=== PATIENT | female | born 1955 | race Caucasian/White ===

== ENCOUNTER 2019-07-28 15:20 | Inpatient (IN) ==
[2019-07-28] MEDS ORDERED: AZITHROMYCIN INJ 500 MG in SODIUM CHLORIDE 0.9% 250 ML IV STA (16:08)
[2019-07-28] MEDS ORDERED: methylPREDNISolone SOD SUC 125 MG/2 ML VIAL IV STA (16:08)
[2019-07-28] MEDS ORDERED: ONDANSETRON 4 MG/2 ML VIAL IV STA (16:08)
[2019-07-28] MEDS ORDERED: cefTRIAXone 1,000 MG in SODIUM CHLORIDE 0.9% 100 ML IV STA (16:08)
[2019-07-28] MEDS ORDERED: ALBUTEROL 2.5 MG/3 ML NEB RESP TX SCH (16:30)
[2019-07-28 17:09] LABS: Basophils % 0.6 % (0.0-0.8); Eosinophils # 0.3 10*3/uL (0.0-0.87); Eosinophils % 3.9 % (0.00-10.9); Hematocrit 37.8 VOL% (35.7-47.0); Hemoglobin 12.5 GM/DL (12.0-16.0); Immature Granulocytes % 0.7 %; Immature Granulocytes Absolute 0.05 #; Lymphocytes # 1.8 10*3/uL (1.4-4.0); Mean Corpuscular HGB Conc 33.1 GM/DL (32-36); Mean Corpuscular Volume 95.5 FL (87-102); Mean Platelet Volume 9.2 FL (9.6-12.0); Monocytes % 6.9 % (1.7-12.7); Neutrophils % 61.9 % (38.7-73.9); Platelet Count 304 T/CUMM (130-400); Red Blood Count 3.96 MC/CUMM (3.8-5.5); Red Cell Distribution Width 14.1 % (9.3-17.3); White Blood Count 6.9 T/CUMM (4-12)
[2019-07-28 17:21] LABS: INR 0.9; PT Patient Result 9.9 SECS (9.6-12.2); Partial Thromboplastin Time 28.9 SECS (20.8-36.0)
[2019-07-28 17:32] LABS: Alanine Aminotransferase 17 U/L (13-56); Albumin 3.5 G/DL (3.4-5.0); Alkaline Phosphatase 61 U/L (45-117); Aspartate Amino Transferase 9 U/L (0-37); Bilirubin,Total < 0.39 MG/DL (0.2-1.0); Blood Urea Nitrogen 12 MG/DL (7-18); Calcium 9.3 MG/DL (8.5-10.1); Estimated Glom Filtration Rate 95 ML/MIN; Glucose 121 MG/DL (74-106); Total Protein 6.9 G/DL (6.4-8.3); Troponin I < 0.015 NG/ML (0.00-0.045)
[2019-07-28 18:59] LABS: Apearance,Urine CLEAR (Clear); Bilirubin,Urine Negative (Negative); Blood, Urine Negative (Negative); Glucose,Urine (UA) Negative (Negative); Ketones,Urine Negative (Negative); Mucus,Urine Occasional /LPF (Occasional); Nitrite,Urine Negative (Negative); Protein,Urine Negative; RBC,Urine 4 /HPF (0-4); Squamous Epithelial Cell,Urine Occasional /HPF (0-10); Urine Color Yellow (Yellow); Urine Specific Gravity 1.015 (1.001-1.035); Urine Urobilinogen < 2.0 EU/DL (0.2-1.0); WBC,Urine 1 /HPF (0-6)
[2019-07-28 19:01] LABS: Barbiturates Screen,Urine Positive (Negative); Benzodiazepines Screen,Urine Negative (Negative); Cannabinoid Screen,Urine Negative (Negative); Opiate Screen,Urine Positive (Negative); Phencyclidine Screen,Urine Negative (Negative)
[2019-07-28] MEDS ORDERED: BUTALBITAL/ACETAMIN/CAFFEINE 50-325-40 MG TABLET PO PRN (22:36)
[2019-07-28] MEDS ORDERED: MAGNESIUM SULF RIDER 4 GM in PREMIX 1 EACH IV PRN (23:10)
[2019-07-28] MEDS ORDERED: SODIUM CHLORIDE 0.9% 1,000 ML IV SCH (23:10)
[2019-07-28] MEDS ORDERED: DOCUSATE SODIUM 100 MG CAPSULE PO PRN (23:10)
[2019-07-28] MEDS ORDERED: DEXTROSE 50% 25 GM/50 ML VIAL IV PRN (23:10)
[2019-07-28] MEDS ORDERED: MAGNESIUM SULF RIDER 2 GM in PREMIX 1 EACH IV PRN (23:10)
[2019-07-28] MEDS ORDERED: ONDANSETRON 4 MG/2 ML VIAL IV PRN (23:10)
[2019-07-28] MEDS ORDERED: GLUCAGON 1 MG VIAL IM PRN (23:10)
[2019-07-28] MEDS ORDERED: NICOTINE 21 MG/24 HR PATCH TRANSDERM PRN (23:10)
[2019-07-28] MEDS ORDERED: ALBUTEROL 2.5 MG/3 ML NEB RESP TX PRN (23:10)
[2019-07-28] MEDS ORDERED: ACETAMINOPHEN 325 MG TABLET PO PRN (23:10)
[2019-07-29] MEDS ORDERED: LEVOFLOXACIN INJ 750 MG in PREMIX 1 EACH IV SCH
[2019-07-29] MEDS: DULoxetine 30 MG CAPSULE PO SCH ×2 (00:06→22:22)
[2019-07-29] MEDS: PRIMIDONE 50 MG TABLET PO SCH ×4 (00:06→22:24)
[2019-07-29] MEDS: MELATONIN 3 MG TABLET PO SCH ×2 (00:07→22:23)
[2019-07-29] MEDS: traZODone 50 MG TABLET PO SCH ×2 (00:08→22:22)
[2019-07-29] MEDS: THEOPHYLLINE ER 300 MG TABLET PO SCH ×3 (00:08→22:25)
[2019-07-29] MEDS: INSULIN LISPRO 100 UNIT/ML SUBCUT SCH ×5 (00:09→22:39)
[2019-07-29] MEDS: ENOXAPARIN 40 MG/0.4 ML SYRINGE SUBCUT SCH ×2 (00:09→22:22)
[2019-07-29] MEDS: GABAPENTIN 600 MG TABLET PO SCH ×4 (00:09→22:24)
[2019-07-29] MEDS: ALBUTEROL/IPRATROPIUM 3 ML NEB RESP TX SCH ×4 (00:31→19:21)
[2019-07-29] MEDS: methylPREDNISolone SOD SUC 40 MG/1 ML VIAL IV SCH ×3 (01:51→17:36)
[2019-07-29] MEDS: PIPERACILLIN/TAZOBACTAM 3,375 MG in SODIUM CHLORIDE 0.9% 100 ML IV SCH ×3 (01:52→17:36)
[2019-07-29 06:04] LABS: Basophils % 0.1 % (0.0-0.8); Hematocrit 36.1 VOL% (35.7-47.0); Immature Granulocytes % 1.6 %; Immature Granulocytes Absolute 0.12 #; Lymphocytes # 0.8 10*3/uL (1.4-4.0); Lymphocytes % 10.6 % (21.3-54.2); Mean Corpuscular HGB Conc 33.2 GM/DL (32-36); Mean Corpuscular Volume 94.5 FL (87-102); Mean Platelet Volume 9.4 FL (9.6-12.0); Monocytes % 1.8 % (1.7-12.7); Neutrophils % 85.9 % (38.7-73.9); Platelet Count 323 T/CUMM (130-400); Red Blood Count 3.82 MC/CUMM (3.8-5.5); Red Cell Distribution Width 14.2 % (9.3-17.3); White Blood Count 7.4 T/CUMM (4-12)
[2019-07-29 06:32] LABS: Calcium 8.6 MG/DL (8.5-10.1); Thyroid Stimulating Hormone 0.207 uIU/ml (0.358-3.74)
[2019-07-29] MEDS ORDERED: ASCORBIC ACID COLLAGEN PO SCH (09:00)
[2019-07-29] MEDS ORDERED: MONTELUKAST 10 MG TABLET PO SCH (09:00)
[2019-07-29] MEDS: EZETIMIBE 10 MG TABLET PO SCH (09:07)
[2019-07-29] MEDS: LOSARTAN 25 MG TABLET PO SCH (09:07)
[2019-07-29] MEDS: ASPIRIN EC 81 MG TABLET PO SCH (09:07)
[2019-07-29] MEDS: CLOPIDOGREL 75 MG TABLET PO SCH (09:07)
[2019-07-29] MEDS: TOLTERODINE LA 4 MG CAPSULE PO SCH (09:08)
[2019-07-29] MEDS: ALBUTEROL 2 MG TABLET PO SCH ×2 (12:12→22:25)
[2019-07-29] MEDS: CLINDAMYCIN INJ 300 MG in PREMIX 1 EACH IV SCH ×3 (13:18→22:26)
[2019-07-29] MEDS: MONTELUKAST 10 MG TABLET PO SCH (22:25)
[2019-07-30] MEDS: ALBUTEROL/IPRATROPIUM 3 ML NEB RESP TX SCH ×4 (00:48→20:05)
[2019-07-30] MEDS: methylPREDNISolone SOD SUC 40 MG/1 ML VIAL IV SCH ×3 (01:31→17:27)
[2019-07-30] MEDS: PIPERACILLIN/TAZOBACTAM 3,375 MG in SODIUM CHLORIDE 0.9% 100 ML IV SCH ×3 (01:31→17:26)
[2019-07-30] MEDS: CLINDAMYCIN INJ 300 MG in PREMIX 1 EACH IV SCH ×4 (04:53→22:17)
[2019-07-30 05:47] LABS: Basophils % 0.2 % (0.0-0.8); Hemoglobin 12.5 GM/DL (12.0-16.0); Immature Granulocytes % 1.7 %; Immature Granulocytes Absolute 0.18 #; Lymphocytes % 9.6 % (21.3-54.2); Mean Corpuscular HGB Conc 32.9 GM/DL (32-36); Mean Corpuscular Volume 96.2 FL (87-102); Mean Platelet Volume 9.5 FL (9.6-12.0); Monocytes % 3.1 % (1.7-12.7); Neutrophils % 85.4 % (38.7-73.9); Platelet Count 373 T/CUMM (130-400); Red Blood Count 3.95 MC/CUMM (3.8-5.5); Red Cell Distribution Width 14.3 % (9.3-17.3); White Blood Count 10.4 T/CUMM (4-12)
[2019-07-30 06:10] LABS: Calcium 8.6 MG/DL (8.5-10.1); Osmolality,Calculated 283.5 MOS/KG (273-304)
[2019-07-30] MEDS: EZETIMIBE 10 MG TABLET PO SCH (08:44)
[2019-07-30] MEDS: THEOPHYLLINE ER 300 MG TABLET PO SCH ×2 (08:44→22:19)
[2019-07-30] MEDS: MONTELUKAST 10 MG TABLET PO SCH ×2 (08:44→22:19)
[2019-07-30] MEDS: PRIMIDONE 50 MG TABLET PO SCH ×3 (08:44→22:19)
[2019-07-30] MEDS: CLOPIDOGREL 75 MG TABLET PO SCH (08:44)
[2019-07-30] MEDS: GABAPENTIN 600 MG TABLET PO SCH ×3 (08:45→22:19)
[2019-07-30] MEDS: INSULIN LISPRO 100 UNIT/ML SUBCUT SCH ×4 (08:45→22:26)
[2019-07-30] MEDS: LOSARTAN 25 MG TABLET PO SCH (08:45)
[2019-07-30] MEDS: ASPIRIN EC 81 MG TABLET PO SCH (08:45)
[2019-07-30] MEDS: TOLTERODINE LA 4 MG CAPSULE PO SCH (08:45)
[2019-07-30] MEDS: ALBUTEROL 2 MG TABLET PO SCH ×2 (08:51→22:20)
[2019-07-30] MEDS: DORNASE ALFA 2.5 MG/2.5 ML VIAL RESP TX SCH ×2 (09:55→20:13)
[2019-07-30] MEDS: ENOXAPARIN 40 MG/0.4 ML SYRINGE SUBCUT SCH (22:18)
[2019-07-30] MEDS: DULoxetine 30 MG CAPSULE PO SCH (22:19)
[2019-07-30] MEDS: MELATONIN 3 MG TABLET PO SCH (22:19)
[2019-07-30] MEDS: traZODone 50 MG TABLET PO SCH (22:32)
[2019-07-31] MEDS: ALBUTEROL/IPRATROPIUM 3 ML NEB RESP TX SCH ×4 (00:57→19:46)
[2019-07-31] MEDS: methylPREDNISolone SOD SUC 40 MG/1 ML VIAL IV SCH ×2 (03:15→09:54)
[2019-07-31] MEDS: PIPERACILLIN/TAZOBACTAM 3,375 MG in SODIUM CHLORIDE 0.9% 100 ML IV SCH ×3 (03:15→17:51)
[2019-07-31 05:29] LABS: Basophils % 0.3 % (0.0-0.8); Hematocrit 32.5 VOL% (35.7-47.0); Hemoglobin 10.6 GM/DL (12.0-16.0); Immature Granulocytes % 1.9 %; Immature Granulocytes Absolute 0.15 #; Lymphocytes # 1.2 10*3/uL (1.4-4.0); Lymphocytes % 15.3 % (21.3-54.2); Mean Corpuscular HGB Conc 32.6 GM/DL (32-36); Mean Corpuscular Volume 96.7 FL (87-102); Mean Platelet Volume 9.4 FL (9.6-12.0); Monocytes % 5.7 % (1.7-12.7); Neutrophils % 76.8 % (38.7-73.9); Platelet Count 312 T/CUMM (130-400); Red Blood Count 3.36 MC/CUMM (3.8-5.5); Red Cell Distribution Width 14.4 % (9.3-17.3); White Blood Count 7.9 T/CUMM (4-12)
[2019-07-31] MEDS: CLINDAMYCIN INJ 300 MG in PREMIX 1 EACH IV SCH ×2 (05:29→09:56)
[2019-07-31 05:49] LABS: Calcium 7.9 MG/DL (8.5-10.1); Osmolality,Calculated 287.4 MOS/KG (273-304)
[2019-07-31] MEDS: DORNASE ALFA 2.5 MG/2.5 ML VIAL RESP TX SCH (07:36)
[2019-07-31] MEDS: CLOPIDOGREL 75 MG TABLET PO SCH (09:54)
[2019-07-31] MEDS: TOLTERODINE LA 4 MG CAPSULE PO SCH (09:54)
[2019-07-31] MEDS: EZETIMIBE 10 MG TABLET PO SCH (09:54)
[2019-07-31] MEDS: GABAPENTIN 600 MG TABLET PO SCH ×3 (09:55→21:36)
[2019-07-31] MEDS: THEOPHYLLINE ER 300 MG TABLET PO SCH ×2 (09:55→21:36)
[2019-07-31] MEDS: ASPIRIN EC 81 MG TABLET PO SCH (09:55)
[2019-07-31] MEDS: ALBUTEROL 2 MG TABLET PO SCH ×2 (09:55→21:36)
[2019-07-31] MEDS: MONTELUKAST 10 MG TABLET PO SCH ×2 (09:55→21:35)
[2019-07-31] MEDS: PRIMIDONE 50 MG TABLET PO SCH ×3 (09:55→21:36)
[2019-07-31] MEDS: LOSARTAN 25 MG TABLET PO SCH (09:55)
[2019-07-31] MEDS: INSULIN LISPRO 100 UNIT/ML SUBCUT SCH ×4 (09:56→21:34)
[2019-07-31] MEDS: INSULIN GLARGINE 100 UNIT/ML SUBCUT SCH (11:31)
[2019-07-31] MEDS ORDERED: SODIUM CHLORIDE 3% 4 ML NEB RESP TX SCH (15:16)
[2019-07-31] MEDS: SODIUM CHLORIDE 3% 4 ML NEB RESP TX SCH ×2 (16:25→19:46)
[2019-07-31] MEDS: predniSONE 20 MG TABLET PO SCH (17:40)
[2019-07-31] MEDS: CLINDAMYCIN 300 MG CAPSULE PO SCH ×2 (17:51→23:22)
[2019-07-31] MEDS: ARFORMOTEROL 15 MCG/2 ML NEB RESP TX SCH (19:46)
[2019-07-31] MEDS: BUDESONIDE 0.5 MG/2 ML NEB RESP TX SCH (19:47)
[2019-07-31] MEDS ORDERED: methylPREDNISolone SOD SUC 40 MG/1 ML VIAL IV SCH (21:00)
[2019-07-31] MEDS: ENOXAPARIN 40 MG/0.4 ML SYRINGE SUBCUT SCH (21:34)
[2019-07-31] MEDS: MELATONIN 3 MG TABLET PO SCH (21:35)
[2019-07-31] MEDS: traZODone 50 MG TABLET PO SCH (21:35)
[2019-07-31] MEDS: DULoxetine 30 MG CAPSULE PO SCH (21:39)
[2019-08-01] MEDS: ALBUTEROL/IPRATROPIUM 3 ML NEB RESP TX SCH ×4 (00:42→19:39)
[2019-08-01] MEDS: PIPERACILLIN/TAZOBACTAM 3,375 MG in SODIUM CHLORIDE 0.9% 100 ML IV SCH ×3 (01:59→17:19)
[2019-08-01] MEDS: CLINDAMYCIN 300 MG CAPSULE PO SCH ×4 (05:06→23:38)
[2019-08-01] MEDS: BUDESONIDE 0.5 MG/2 ML NEB RESP TX SCH ×2 (07:48→19:38)
[2019-08-01] MEDS: ARFORMOTEROL 15 MCG/2 ML NEB RESP TX SCH ×2 (07:48→19:39)
[2019-08-01] MEDS: SODIUM CHLORIDE 3% 4 ML NEB RESP TX SCH ×2 (07:48→19:39)
[2019-08-01] MEDS: INSULIN LISPRO 100 UNIT/ML SUBCUT SCH ×4 (08:20→21:24)
[2019-08-01] MEDS: INSULIN GLARGINE 100 UNIT/ML SUBCUT SCH (08:20)
[2019-08-01] MEDS: GABAPENTIN 600 MG TABLET PO SCH ×3 (08:21→21:25)
[2019-08-01] MEDS: MONTELUKAST 10 MG TABLET PO SCH ×2 (08:21→21:25)
[2019-08-01] MEDS: ASPIRIN EC 81 MG TABLET PO SCH (08:21)
[2019-08-01] MEDS: ALBUTEROL 2 MG TABLET PO SCH ×2 (08:21→21:25)
[2019-08-01] MEDS: CLOPIDOGREL 75 MG TABLET PO SCH (08:21)
[2019-08-01] MEDS: TOLTERODINE LA 4 MG CAPSULE PO SCH (08:21)
[2019-08-01] MEDS: EZETIMIBE 10 MG TABLET PO SCH (08:21)
[2019-08-01] MEDS: THEOPHYLLINE ER 300 MG TABLET PO SCH ×2 (08:22→21:24)
[2019-08-01] MEDS: LOSARTAN 25 MG TABLET PO SCH (08:22)
[2019-08-01] MEDS: PRIMIDONE 50 MG TABLET PO SCH ×3 (08:22→21:25)
[2019-08-01] MEDS: predniSONE 20 MG TABLET PO SCH (08:22)
[2019-08-01] MEDS: ENOXAPARIN 40 MG/0.4 ML SYRINGE SUBCUT SCH (21:24)
[2019-08-01] MEDS: MELATONIN 3 MG TABLET PO SCH (21:24)
[2019-08-01] MEDS: DULoxetine 30 MG CAPSULE PO SCH (21:25)
[2019-08-01] MEDS: traZODone 50 MG TABLET PO SCH (21:25)
[2019-08-02] MEDS: PIPERACILLIN/TAZOBACTAM 3,375 MG in SODIUM CHLORIDE 0.9% 100 ML IV SCH ×3 (01:28→19:11)
[2019-08-02] MEDS: ALBUTEROL/IPRATROPIUM 3 ML NEB RESP TX SCH ×4 (02:32→19:23)
[2019-08-02] MEDS: CLINDAMYCIN 300 MG CAPSULE PO SCH (05:20)
[2019-08-02 05:30] LABS: Basophils % 0.3 % (0.0-0.8); Eosinophils # 0.1 10*3/uL (0.0-0.87); Eosinophils % 0.6 % (0.00-10.9); Hematocrit 35.2 VOL% (35.7-47.0); Hemoglobin 11.5 GM/DL (12.0-16.0); Immature Granulocytes % 1.6 %; Immature Granulocytes Absolute 0.15 #; Lymphocytes # 2.9 10*3/uL (1.4-4.0); Lymphocytes % 30.7 % (21.3-54.2); Mean Corpuscular HGB Conc 32.7 GM/DL (32-36); Mean Corpuscular Volume 95.9 FL (87-102); Mean Platelet Volume 9.3 FL (9.6-12.0); Monocytes % 7.9 % (1.7-12.7); Neutrophils % 58.9 % (38.7-73.9); Platelet Count 346 T/CUMM (130-400); Red Blood Count 3.67 MC/CUMM (3.8-5.5); Red Cell Distribution Width 14.5 % (9.3-17.3); White Blood Count 9.4 T/CUMM (4-12)
[2019-08-02 06:06] LABS: Calcium 8.3 MG/DL (8.5-10.1); Osmolality,Calculated 282.7 MOS/KG (273-304)
[2019-08-02] MEDS: BUDESONIDE 0.5 MG/2 ML NEB RESP TX SCH ×2 (07:35→19:25)
[2019-08-02] MEDS: ARFORMOTEROL 15 MCG/2 ML NEB RESP TX SCH ×2 (07:35→19:23)
[2019-08-02] MEDS: SODIUM CHLORIDE 3% 4 ML NEB RESP TX SCH ×2 (07:35→19:25)
[2019-08-02] MEDS: INSULIN GLARGINE 100 UNIT/ML SUBCUT SCH (08:41)
[2019-08-02] MEDS: INSULIN LISPRO 100 UNIT/ML SUBCUT SCH ×4 (08:42→21:38)
[2019-08-02] MEDS: ALUMINUM/MAGNES/SIMETH MAX STR 30 ML UDCUP PO PRN ×2 (08:43→12:39)
[2019-08-02] MEDS: THEOPHYLLINE ER 300 MG TABLET PO SCH ×2 (09:36→21:39)
[2019-08-02] MEDS: EZETIMIBE 10 MG TABLET PO SCH (09:36)
[2019-08-02] MEDS: PRIMIDONE 50 MG TABLET PO SCH ×3 (09:36→21:38)
[2019-08-02] MEDS: ALBUTEROL 2 MG TABLET PO SCH ×2 (09:36→21:39)
[2019-08-02] MEDS: TOLTERODINE LA 4 MG CAPSULE PO SCH (09:36)
[2019-08-02] MEDS: CLOPIDOGREL 75 MG TABLET PO SCH (09:37)
[2019-08-02] MEDS: predniSONE 20 MG TABLET PO SCH (09:37)
[2019-08-02] MEDS: MONTELUKAST 10 MG TABLET PO SCH ×2 (09:38→21:39)
[2019-08-02] MEDS: LOSARTAN 25 MG TABLET PO SCH (09:38)
[2019-08-02] MEDS: GABAPENTIN 600 MG TABLET PO SCH ×3 (09:38→21:40)
[2019-08-02] MEDS: POTASSIUM CHLORIDE 20 MEQ TABLET PO PRN ×3 (09:39→14:42)
[2019-08-02] MEDS: ASPIRIN EC 81 MG TABLET PO SCH (09:39)
[2019-08-02] MEDS: FLUCONAZOLE 100 MG TABLET PO SCH (12:29)
[2019-08-02] MEDS: MELATONIN 3 MG TABLET PO SCH (21:39)
[2019-08-02] MEDS: DULoxetine 30 MG CAPSULE PO SCH (21:39)
[2019-08-02] MEDS: ENOXAPARIN 40 MG/0.4 ML SYRINGE SUBCUT SCH (21:39)
[2019-08-02] MEDS: traZODone 50 MG TABLET PO SCH (21:40)
[2019-08-02] MEDS: methylPREDNISolone SOD SUC 40 MG/1 ML VIAL IV SCH (21:40)
[2019-08-03] MEDS: ALBUTEROL/IPRATROPIUM 3 ML NEB RESP TX SCH ×4 (00:26→19:37)
[2019-08-03] MEDS: PIPERACILLIN/TAZOBACTAM 3,375 MG in SODIUM CHLORIDE 0.9% 100 ML IV SCH ×3 (02:26→17:02)
[2019-08-03] MEDS: SODIUM CHLORIDE 3% 4 ML NEB RESP TX SCH ×2 (07:30→19:46)
[2019-08-03] MEDS: BUDESONIDE 0.5 MG/2 ML NEB RESP TX SCH ×2 (07:30→19:37)
[2019-08-03] MEDS: ARFORMOTEROL 15 MCG/2 ML NEB RESP TX SCH ×2 (07:30→19:37)
[2019-08-03] MEDS: INSULIN LISPRO 100 UNIT/ML SUBCUT SCH ×4 (08:54→20:33)
[2019-08-03] MEDS: methylPREDNISolone SOD SUC 40 MG/1 ML VIAL IV SCH ×2 (08:54→20:30)
[2019-08-03] MEDS: INSULIN GLARGINE 100 UNIT/ML SUBCUT SCH (08:54)
[2019-08-03] MEDS: ASPIRIN EC 81 MG TABLET PO SCH (08:55)
[2019-08-03] MEDS: FLUCONAZOLE 100 MG TABLET PO SCH (08:55)
[2019-08-03] MEDS: CLOPIDOGREL 75 MG TABLET PO SCH (08:55)
[2019-08-03] MEDS: GABAPENTIN 600 MG TABLET PO SCH ×3 (08:55→20:36)
[2019-08-03] MEDS: PRIMIDONE 50 MG TABLET PO SCH ×3 (08:56→20:36)
[2019-08-03] MEDS: MONTELUKAST 10 MG TABLET PO SCH ×2 (08:56→20:35)
[2019-08-03] MEDS: TOLTERODINE LA 4 MG CAPSULE PO SCH (08:56)
[2019-08-03] MEDS: EZETIMIBE 10 MG TABLET PO SCH (08:56)
[2019-08-03] MEDS: LOSARTAN 25 MG TABLET PO SCH (08:56)
[2019-08-03] MEDS: THEOPHYLLINE ER 300 MG TABLET PO SCH ×2 (08:56→20:35)
[2019-08-03] MEDS: ALBUTEROL 2 MG TABLET PO SCH ×2 (09:05→20:36)
[2019-08-03] MEDS: PANTOPRAZOLE 40 MG TABLET PO SCH ×2 (11:52→20:35)
[2019-08-03] MEDS: HYOSCYAMINE 0.125 MG TABLET PO SCH ×3 (11:52→20:35)
[2019-08-03] MEDS: traZODone 50 MG TABLET PO SCH (20:35)
[2019-08-03] MEDS: MELATONIN 3 MG TABLET PO SCH (20:35)
[2019-08-03] MEDS: DULoxetine 30 MG CAPSULE PO SCH (20:35)
[2019-08-04] MEDS: ALBUTEROL/IPRATROPIUM 3 ML NEB RESP TX SCH ×2 (00:35→07:39)
[2019-08-04] MEDS: PIPERACILLIN/TAZOBACTAM 3,375 MG in SODIUM CHLORIDE 0.9% 100 ML IV SCH ×2 (02:15→09:02)
[2019-08-04 07:17] LABS: Calcium 8.8 MG/DL (8.5-10.1); Osmolality,Calculated 281.1 MOS/KG (273-304)
[2019-08-04] MEDS: ARFORMOTEROL 15 MCG/2 ML NEB RESP TX SCH (07:37)
[2019-08-04] MEDS: BUDESONIDE 0.5 MG/2 ML NEB RESP TX SCH (07:38)
[2019-08-04] MEDS: SODIUM CHLORIDE 3% 4 ML NEB RESP TX SCH (07:40)
[2019-08-04] MEDS: THEOPHYLLINE ER 300 MG TABLET PO SCH (09:00)
[2019-08-04] MEDS: PRIMIDONE 50 MG TABLET PO SCH (09:00)
[2019-08-04] MEDS: HYOSCYAMINE 0.125 MG TABLET PO SCH ×2 (09:00→11:55)
[2019-08-04] MEDS: EZETIMIBE 10 MG TABLET PO SCH (09:00)
[2019-08-04] MEDS: TOLTERODINE LA 4 MG CAPSULE PO SCH (09:00)
[2019-08-04] MEDS: ALBUTEROL 2 MG TABLET PO SCH (09:00)
[2019-08-04] MEDS: MONTELUKAST 10 MG TABLET PO SCH (09:00)
[2019-08-04] MEDS ORDERED: propofoL 200 MG/20 ML VIAL IV ONE (09:00)
[2019-08-04] MEDS ORDERED: LIDOCAINE 2% 5 ML VIAL ONE (09:00)
[2019-08-04] MEDS: LOSARTAN 25 MG TABLET PO SCH (09:00)
[2019-08-04] MEDS: PANTOPRAZOLE 40 MG TABLET PO SCH (09:01)
[2019-08-04] MEDS: INSULIN LISPRO 100 UNIT/ML SUBCUT SCH ×2 (09:01→11:55)
[2019-08-04] MEDS: FLUCONAZOLE 100 MG TABLET PO SCH (09:01)
[2019-08-04] MEDS: ASPIRIN EC 81 MG TABLET PO SCH (09:01)
[2019-08-04] MEDS: methylPREDNISolone SOD SUC 40 MG/1 ML VIAL IV SCH (09:02)
[2019-08-04] MEDS: INSULIN GLARGINE 100 UNIT/ML SUBCUT SCH (09:02)
[2019-08-04] MEDS: GABAPENTIN 600 MG TABLET PO SCH (09:04)
[2019-08-04 12:02] VITALS: BP 138/73
[2019-08-04 18:11] LABS: CDT Result Negative (Negative); CDT Specimen Source STOOL
== END 2019-08-04 12:56 | disposition home or self-care (01) | DRG 190 ==
LOC: N.ED 15:20 → SUATTDRO 20:36 → N.EDINP 20:36 → N.5E 22:10
PROVIDERS: ADMIT Internal Medicine; ATTEND Internal Medicine